=== PATIENT | female | born 1990 | race Caucasian/White ===

== ENCOUNTER 2023-02-02 12:28 | Emergency (ER) | payer MEDICAID ==
[~2023-02-02] VITALS: Ht 165.1 cm; Wt 58.1 kg
[2023-02-02 12:51] VITALS: BP 101/54
[2023-02-02] MEDS ORDERED: POLY10DR OP (13:14)
== END 2023-02-02 13:24 | disposition home or self-care (01) ==
LOC: ER 12:30
DX: H10.11 Acute atopic conjunctivitis, right eye (principal)

== ENCOUNTER 2023-07-26 12:18 | Emergency (ER) | payer MEDICAID ==
[~2023-07-26] VITALS: Ht 162.6 cm; Wt 71.7 kg
[~2023-07-26 12:18] MED LIST: POLY10DR OP
[2023-07-26] MEDS ORDERED: LIDOCAINE MPF 1%-EPI 1:200,000 30 ML VIAL IJ ONE (15:01)
[2023-07-26 15:27] VITALS: BP 106/67; TEMP 98.1; O2SAT 98
== END 2023-07-26 15:28 | disposition home or self-care (01) ==
LOC: ER 12:18
DX: S01.81XA Laceration without foreign body of other part of head, initial encounter (principal); W22.8XXA Striking against or struck by other objects, initial encounter; Y93.89 Activity, other specified; Y92.89 Other specified places as the place of occurrence of the external cause; Y99.8 Other external cause status
CPT/HCPCS: 12011; 99282; A6403; J3490

== ENCOUNTER 2023-07-31 11:28 | Emergency (ER) | payer MEDICAID ==
[~2023-07-31] VITALS: Ht 167.6 cm; Wt 56.7 kg
[2023-07-31 11:34] VITALS: BP 107/51; TEMP 98.1; O2SAT 99
== END 2023-07-31 11:56 | disposition home or self-care (01) ==
LOC: ER 11:32
DX: Z48.02 Encounter for removal of sutures (principal); S01.81XD Laceration without foreign body of other part of head, subsequent encounter; X58.XXXD Exposure to other specified factors, subsequent encounter

== ENCOUNTER 2023-11-23 12:26 | Emergency (ER) | payer MEDICAID, OTHER ==
[~2023-11-23] VITALS: Ht 162.6 cm; Wt 59.0 kg
[2023-11-23 12:33] VITALS: BP 120/78; TEMP 98.2
[2023-11-23] MEDS ORDERED: PRED50TA PO (12:55)
[2023-11-23 12:59] VITALS: O2SAT 100
== END 2023-11-23 13:00 | disposition home or self-care (01) ==
LOC: ER 12:31
DX: H01.8 Other specified inflammations of eyelid (principal)